=== PATIENT | female | born 1960 | race African-American/Black ===

== ENCOUNTER 2024-06-13 13:36 | Emergency (ER) | payer OTHER, SELFPAY ==
[2024-06-13] VITALS (7 sets, daily range): BP systolic 141–164; BP diastolic 77–102; PULSE 70–97; TEMP 36.9; O2SAT 98–100; BMI 23.6
--- NOTE | 2024-06-13 13:44 | CT_ITS ---
[address] [address] Patient Name: ARSENIO PEREZ MRN: [id number] date: 1960 Sex: F Assigned Patient Location: ER Current Patient Location: Accession/Order Number: [id number] Exam Date: 06/13/2024 15:00 Report Date: 06/13/2024 15:51 At the request of: IGNACIO ALFRED Procedure: CT abdomen pelvis w con EXAMINATION: CT abdomen pelvis w con INDICATION: Abdominal pain. COMPARISON: None. TECHNIQUE: Multiple contiguous axial CT images of the abdomen and pelvis were obtained after the administration of intravenous contrast. Sagittal and coronal reconstructions were performed. Dose reduction techniques were achieved by using: automated exposure control and/or adjustment of mA and /or kV according to patient size and/or use of iterative reconstruction technique. FINDINGS: LOWER CHEST: No acute abnormality. ABDOMEN AND PELVIS: LIVER: Normal. BILIARY SYSTEM: Normal gallbladder. No biliary ductal dilatation. PANCREAS: Normal. SPLEEN: Normal. ADRENAL GLANDS: Left adrenal 1.3 cm nodule. Normal right adrenal gland. URINARY SYSTEM: Hypoattenuating lesion in the upper pole the left kidney measuring 1.2 cm. Normal right kidney. No hydronephrosis or urolithiasis. Normal bladder. REPRODUCTIVE: Calcified fibroid in the left uterus. Unremarkable ovaries. GASTROINTESTINAL TRACT: Normal caliber bowel. No bowel wall thickening or inflammation. Colonic diverticulosis without diverticulitis. Normal appendix. VESSELS: Nonaneurysmal abdominal aorta with mild atherosclerotic calcifications. Patent abdominal vasculature. LYMPH NODES: No adenopathy. PERITONEUM: No ascites or pneumoperitoneum. MUSCULOSKELETAL: SOFT TISSUES: Small midline supraumbilical ventral hernia containing ascitic fluid. Small fat-containing umbilical hernia. BONES: No acute osseous abnormality or suspicious osseous lesion. JONES: (series:image) CT/CT abdomen pelvis w con IMPRESSION: 1. Small abdominal wall hernias. The supraumbilical ventral hernia contains fluid. Incarceration not excluded. No other evidence of process in the abdomen or pelvis. 2. Left adrenal nodule, likely an adenoma. 3. Indeterminate left renal 1.2 cm lesion. Recommend further characterizing with nonemergent renal protocol CT or MRI. MR would be preferable to also characterize the left adrenal nodule. 4. Colonic diverticulosis. Electronically authenticated by: HAILEE CHEEK Date: 06/13/2024 15:51
--- NOTE | 2024-06-13 13:54 | ED.GENADUL1 ---
HPI HPI - General Adult General Chief complaint: Abdominal Pain Stated complaint: ABDOMINAL SWELLING AND PAIN Time Seen by Provider: 06/13/24 13:38 Source: patient Mode of arrival: walk-in History of Present Illness HPI narrative: Patient presents to ED complaining of abdominal pain and distention. Patient is from [facility] and she states she is recovering from cocaine. Patient states she has had some abdominal pain and hernia for the past 3 weeks but its gotten much more tender and distended over the past couple of days. She reports that she is able to eat and drink but does have nausea. She is able to have normal bowel movements and urination. Patient denies any history of abdominal surgeries. She denies alcohol abuse. Patient is slightly tachycardic and tachypneic. No fevers. She denies any blood in the stool. She does have a distended abdomen with a central abdominal pain and there is a palpable lump. She is alert and oriented in no acute distress. Appears uncomfortable Related Data Home Medications ?Medication ?Instructions ?Recorded ?Confirmed amlodipine 5 mg tablet 5 mg PO DAILY 06/13/24 06/13/24 duloxetine 60 mg capsule,delayed 60 mg PO DAILY 06/13/24 06/13/24 release ibuprofen 800 mg tablet 800 mg PO BID PRN fever or pain 06/13/24 06/13/24 lamotrigine 100 mg tablet 100 mg PO QAM 06/13/24 06/13/24 lamotrigine 25 mg tablet 50 mg PO QAM 06/13/24 06/13/24 losartan 100 mg tablet 100 mg PO DAILY 06/13/24 06/13/24 melatonin 10 mg capsule 10 mg PO .QHS PRN sleep 06/13/24 06/13/24 quetiapine 400 mg tablet 400 mg PO QPM 06/13/24 06/13/24 Previous Rx's ?Medication ?Instructions ?Recorded docusate sodium 100 mg capsule 100 mg PO DAILY #14 caps 06/13/24 (Colace) Allergies Allergy/AdvReac Type Severity Reaction Status Date / Time No Known Drug Allergies Allergy Verified 06/13/24 13:44 Opioid HPI Opioid Management Most Recent Opioid Data: Last Pain Scale 7 06/13/24 16:03 06/13/24 Last MAR Pain Assessment 06/13/24 16:03 Review of Systems ROS Status of ROS 10 or more systems reviewed and unremarkable except as noted in history and below Exam Narrative Exam Narrative: Time Seen: [] Vital Signs: [Per nurse's notes.] General: [Alert] Skin: [Warm, dry, no rash.] Head: [Normocephalic, atraumatic.] Neck: [Supple, trachea midline.] Eye: [Pupils are equal, round and reactive to light, extraocular movements are intact, normal conjunctiva.] Ears, nose, mouth and throat: oral mucosa moist. Cardiovascular: [Regular rate and rhythm, no murmur.] Respiratory: [Lungs are clear to auscultation, respirations are non-labored, breath sounds are equal.] Chest wall: [No tenderness, no deformity.] Gastrointestinal: [Abdomen soft, distended. Ventral hernia felt in the central abdomen above the umbilicus with tenderness to palpation MSK: 5 out of 5 muscle strength x 4 extremities no calf pain or edema Lymphatics: [No lymphadenopathy.] Psychiatric: [Cooperative, appropriate mood & affect.] Neurological: [Alert and oriented to person, place, time, and situation, no focal neurological deficit observed.] Constitutional Vital Signs, click to edit/add: Last Vital Signs Temp 98.4 F 06/13/24 13:42 Pulse 70 06/13/24 16:34 Resp 22 H 06/13/24 13:42 BP 155/85 H 06/13/24 16:30 Pulse Ox 98 06/13/24 16:30 O2 Del Method Room Air 06/13/24 14:21 Course Vital Signs Vital signs: Vital Signs Temperature 98.4 F 06/13/24 13:42 Pulse Rate 97 H 06/13/24 13:42 Respiratory Rate 22 H 06/13/24 13:42 Blood Pressure 162/102 H 06/13/24 13:42 Pulse Oximetry 100 06/13/24 13:42 Oxygen Delivery Method Room Air 06/13/24 13:42 Temperature 98.4 F 06/13/24 13:42 Pulse Rate 70 06/13/24 16:34 Respiratory Rate 22 H 06/13/24 13:42 Blood Pressure 155/85 H 06/13/24 16:30 Pulse Oximetry 98 06/13/24 16:30 Oxygen Delivery Method Room Air 06/13/24 14:21 Medical Decision Making MDM Narrative Medical decision making narrative: Patient's labs are negative for acute findings. Vital signs stable. Lactic acid is normal and there is no white blood cell count or fever. Patient has not been vomiting. CT scan shows abdominal wall hernias and a ventral hernia containing fluid but the CT scan does not say that includes any bowel. Incarcerated hernia not fully excluded. Patient is feeling better after some pain medication and nausea medication. I called and spoke to surgeon at [facility] they stated with a normal lactate normal vitals no vomiting no bowel obstruction and the fact that the hernia contains fluid and not bowel then this could be managed on an outpatient basis most likely. He states to have the patient return immediately if she is having severe pain or vomiting or unable to keep anything down. I reviewed all of the findings and this information with the patient and she is going back to [facility] where she can also be monitored. I explained to her if she has any acute changes please return immediately to the nearest emergency room. She said she wants to get it fixed but would prefer to get it fixed down in [place] where she is from. I told her she needs to find a general surgeon to follow-up with. If she cannot get back down to [place] then she needs to go to the [place] area to have this evaluated by general surgery. She states that she will work on finding follow-up. She will return to the emergency room if any worsening symptoms. She also has constipation and states it has been hard for her to have a bowel movement although on arrival she said she has been having bowel movements without any pain. She states has been a little tougher to have the bowel movement. CT scan does show that she has a lot of stool in her colon She states that she needs a stool softener so I wrote a prescription for her for that. Patient is stable for discharge home and given strict instructions to return if any worsening symptoms or changes. Differential Diagnosis Differential Diagnosis: Ventral hernia, abdominal wall hernia, small bowel obstruction, abdominal p Lab Data Lab results reviewed: Yes I reviewed the patient's lab results Labs: Lab Results 06/13/24 06/13/24 Range/Units 13:48 13:49 WBC 6.0 (4.0-11.0) 10^3/uL RBC 4.56 (4.20-5.40) 10^6/uL Hgb 13.8 (12.0-16.0) g/dL Hct 41.2 (36.0-48.0) % MCV 90.4 (81.0-99.0) fL MCH 30.3 (26.7-34.0) pg MCHC 33.5 (29.9-35.2) g/dL RDW 15.2 H (11.0-15.0) % Plt Count 330 (150-450) 10^3/uL MPV 8.8 L (9.5-13.5) fL Neut % (Auto) 52.2 (43.0-75.0) % Lymph % (Auto) 37.5 (20.5-60.0) % [place] % (Auto) 7.5 (1.7-12.0) % Eos % (Auto) 1.7 (0.9-7.0) % Baso % (Auto) 0.8 (0.2-2.0) % Neut # (Auto) 3.1 (1.4-6.5) 10^3/uL Lymph # (Auto) 2.3 (1.2-3.8) 10^3/uL [place] # (Auto) 0.5 (0.3-0.8) 10^3/uL Eos # (Auto) 0.1 (0.0-0.7) 10^3/uL Baso # (Auto) 0.1 (0.0-0.1) 10^3/uL Abs Immat Gran (auto) 0.02 (0.00-0.03) 10^3/uL Imm/Tot Granulo (auto) 0.3 (0.0-0.5) % PT 10.3 (9.0-11.6) sec INR 0.97 Sodium 141 (136-145) mmol/L Potassium 4.2 (3.5-5.1) mmol/L Chloride 107 (98-107) mmol/L Carbon Dioxide 25.8 (21.0-32.0) mmol/L Anion Gap 12.4 BUN 16.0 (7.0-18.0) mg/dL Creatinine 0.93 (0.55-1.02) mg/dL Est GFR ( Amer) >60 (>=60 mL/min/1.73m^2) Est GFR (Non-Af Amer) >60 (>=60 mL/min/1.73m^2) BUN/Creatinine Ratio 17.2 Glucose 110 H (74-106) mg/dL Lactate 1.5 (0.4-2.0) mmol/L Calcium 8.7 (8.5-10.1) mg/dL Total Bilirubin 0.2 (0.2-1.0) mg/dL AST 9 L (15-37) U/L ALT 19 (14-59) U/L Alkaline Phosphatase 78 (46-116) U/L Total Protein 6.8 (6.4-8.2) g/dL Albumin 3.2 L (3.4-5.0) g/dL Globulin 3.6 g/dL Albumin/Globulin Ratio 0.9 Urine Color Yellow (YELLOW) Urine Clarity Clear (CLEAR) Urine pH 6.0 (5.0-9.0) Ur Specific [place] 1.025 (1.005-1.025) Urine Protein Negative (NEG/TRACE) mg/dL Urine Glucose (UA) Negative (NEGATIVE) mg/dL Urine Ketones Trace A (NEGATIVE) mg/dL Urine Occult Blood Negative (NEGATIVE) Urine Nitrite Negative (NEGATIVE) Urine Bilirubin Negative (NEGATIVE) Urine Urobilinogen 2.0 A (0.2-1.0) EU/dL Ur Leukocyte Esterase Negative (NEGATIVE) Imaging Data CT scan - abdomen: Radiologist's impression: ITS Impressions Abdomen/Pelvis CT 06/13/24 13:44 IMPRESSION: 1. Small abdominal wall hernias. The supraumbilical ventral hernia contains fluid. Incarceration not excluded. No other evidence of process in the abdomen or pelvis. 2. Left adrenal nodule, likely an adenoma. 3. Indeterminate left renal 1.2 cm lesion. Recommend further characterizing with nonemergent renal protocol CT or MRI. MR would be preferable to also characterize the left adrenal nodule. 4. Colonic diverticulosis. Electronically authenticated by: HAILEE CHEEK Date: 06/13/2024 15:51 Discharge Plan Discharge Chief Complaint: Abdominal Pain Clinical Impression: Abdominal pain, Hernia, ventral Patient Disposition: Home, Self-Care Time of Disposition Decision: 16:54 Condition: Good Mode of Transportation: Private Vehicle Prescriptions / Home Meds: New docusate sodium [Colace] 100 mg capsule 100 mg PO DAILY Qty: 14 0RF No Action amlodipine 5 mg tablet 5 mg PO DAILY duloxetine 60 mg capsule,delayed release(DR/EC) 60 mg PO DAILY ibuprofen 800 mg tablet 800 mg PO BID PRN (Reason: fever or pain) lamotrigine 100 mg tablet 100 mg PO QAM lamotrigine 25 mg tablet 50 mg PO QAM losartan 100 mg tablet 100 mg PO DAILY melatonin 10 mg capsule 10 mg PO .QHS PRN (Reason: sleep) quetiapine 400 mg tablet 400 mg PO QPM Print Language: Swedish Instructions: Abdominal Pain (ED), Ventral Hernia (ED) Referrals: Physician,Non-Staff, MD [Primary Care Provider] - 1 week
[2024-06-13 14:05] LABS: Basophils Absolute Auto 0.1 10^3/uL (0.0-0.1); Basophils Percent Auto 0.8 % (0.2-2.0); Eosinophils Absolute Auto 0.1 10^3/uL (0.0-0.7); Eosinophils Percent Auto 1.7 % (0.9-7.0); Hematocrit 41.2 % (36.0-48.0); Hemoglobin 13.8 g/dL (12.0-16.0); Immature Granulocytes Abs Auto 0.02 10^3/uL (0.00-0.03); Immature Granulocytes Pct Auto 0.3 % (0.0-0.5); Lymphocytes Absolute Auto 2.3 10^3/uL (1.2-3.8); Lymphocytes Percent Auto 37.5 % (20.5-60.0); Mean Corpuscular HGB Conc 33.5 g/dL (29.9-35.2); Mean Corpuscular Hemoglobin 30.3 pg (26.7-34.0); Mean Corpuscular Volume 90.4 fL (81.0-99.0); Mean Platelet Volume 8.8 fL (9.5-13.5); Monocytes Absolute Auto 0.5 10^3/uL (0.3-0.8); Monocytes Percent Auto 7.5 % (1.7-12.0); Neutrophils Absolute Auto 3.1 10^3/uL (1.4-6.5); Neutrophils Percent Auto 52.2 % (43.0-75.0); Platelet Count 330 10^3/uL (150-450); Red Blood Count 4.56 10^6/uL (4.20-5.40); Red Cell Distribution Width 15.2 % (11.0-15.0)
[2024-06-13 14:07] LABS: Bilirubin Urine NEGATIVE (NEGATIVE); Blood Urine NEGATIVE (NEGATIVE); Clarity Urine CLEAR (CLEAR); Color Urine YELLOW (YELLOW); Glucose Urine UA NEGATIVE (NEGATIVE); Ketones Urine TRACE mg/dL (NEGATIVE); Leukocyte Esterase Urine NEGATIVE (NEGATIVE); Nitrite Urine NEGATIVE (NEGATIVE); Protein Urine NEGATIVE (NEG/TRACE); Specific Gravity Urine 1.025 (1.005-1.025)
[2024-06-13] MEDS: 0.9 % SODIUM CHLORIDE 500 ML IV (14:08)
[2024-06-13] MEDS: KETOROLAC TROMETHAMINE 30 MG/ML VIAL 15 MG IVP ×2 (14:08→16:03)
[2024-06-13 14:09] LABS: Urine Microscopic Indicated NO
[2024-06-13] MEDS: ONDANSETRON PF 4 MG/2 ML VIAL IV (14:09)
[2024-06-13 14:42] LABS: Alanine Aminotransferase 19 U/L (14-59); Albumin Globulin Ratio 0.9; Albumin Level 3.2 g/dL (3.4-5.0); Alkaline Phosphatase 78 U/L (46-116); Anion Gap 12.4; Aspartate Amino Transferase 9 U/L (15-37); BUN Creatinine Ratio 17.2; Bilirubin Total 0.2 mg/dL (0.2-1.0); Calcium 8.7 mg/dL (8.5-10.1); Carbon Dioxide 25.8 mmol/L (21.0-32.0); Chloride 107 mmol/L (98-107); Estimated GFR (African America >60 (>=60 mL/min/1.73m^2); Estimated GFR (Non-African Ame >60 (>=60 mL/min/1.73m^2); Globulin 3.6 g/dL; Glucose 110 mg/dL (74-106); Potassium 4.2 mmol/L (3.5-5.1); Sodium 141 mmol/L (136-145); Total Protein 6.8 g/dL (6.4-8.2)
[2024-06-13 14:43] LABS: Lactate/Lactic Acid 1.5 mmol/L (0.4-2.0)
[2024-06-13 14:47] LABS: INR 0.97; Prothrombin Time 10.3 sec (9.0-11.6)
== END 2024-06-13 17:11 | disposition home or self-care (01) ==
PROVIDERS: Emergency Provider Emergency Medicine
DX: K43.9 Ventral hernia without obstruction or gangrene (principal); R10.9 Unspecified abdominal pain; K57.30 Diverticulosis of large intestine without perforation or abscess without bleeding
CPT/HCPCS: 36415; 74177; 80053; 81003; 83605; 85025; 85610; 96374; 96375; 96376; 99284; J1885; J2405; Q9967

== ENCOUNTER 2024-06-16 10:50 | Emergency (ER) | payer OTHER, SELFPAY ==
[2024-06-16 10:54] VITALS: BP 165/106; PULSE 80; TEMP 36.5; O2SAT 97; BMI 23.6
--- NOTE | 2024-06-16 11:08 | ED_ITS ---
HPI - Abdominal Pain General Chief Complaint: Abdominal Pain Stated Complaint: ABDOMINAL PAIN Time Seen by Provider: 06/16/24 10:56 Mode of arrival: walk-in History of Present Illness HPI narrative: The patient is a 63-year-old female is [facility], for concern of abdominal pain and hernia, patient was evaluated for similar reason on the of this month when she was referred to the general surgeon as outpatient, she mentioned that for the last few days she noted that the pain is still there she gave the pain 8 out of 10, the patient mentioned that there is no vomiting but some nausea and she has been having norm al bowel movement after she had a constipation last time she was here No specific tenderness but the hernia is reducible and yesterday she mentioned that she felt like the hernia is in her lap This is not the case today at the patient have pain still in the mid abdomen but no bulging Patient mentioned that sometimes walking makes the bulging get worse Related Data Home Medications ?Medication ?Instructions ?Recorded ?Confirmed amlodipine 5 mg tablet 5 mg PO DAILY 06/13/24 06/13/24 duloxetine 60 mg capsule,delayed 60 mg PO DAILY 06/13/24 06/13/24 release ibuprofen 800 mg tablet 800 mg PO BID PRN fever or pain 06/13/24 06/13/24 lamotrigine 100 mg tablet 100 mg PO QAM 06/13/24 06/13/24 lamotrigine 25 mg tablet 50 mg PO QAM 06/13/24 06/13/24 losartan 100 mg tablet 100 mg PO DAILY 06/13/24 06/13/24 melatonin 10 mg capsule 10 mg PO .QHS PRN sleep 06/13/24 06/13/24 quetiapine 400 mg tablet 400 mg PO QPM 06/13/24 06/13/24 Previous Rx's ?Medication ?Instructions ?Recorded docusate sodium 100 mg capsule 100 mg PO DAILY #14 caps 06/13/24 (Colace) ondansetron 4 mg disintegrating 4 mg PO Q8H PRN nausea and 06/16/24 tablet vomiting 48 hours #6 tabs Allergies Allergy/AdvReac Type Severity Reaction Status Date / Time No Known Drug Allergies Allergy Verified 06/13/24 13:44 Review of Systems ROS Status of ROS 10 or more systems reviewed and unremark able except as noted in history and below PFSH PFSH Social History Little interest or pleasure in doing things: not at all Feeling down, depressed, or hopeless: not at all Exam Narrative Exam Narrative: Nurses notes and vital signs reviewed and patient is not hypoxic. General: Well-appearing and in no apparent distress. Skin: Warm, dry, no pallor noted. No rash. Head: Normocephalic, atraumatic. Neck: Supple, non-tender. Eye: Pupils are equal, round and EOMI. No scleral icterus. Ears, Nose, Mouth, and Throat: TM are clear, no nasal mucosal hypertrophy. Oral mucosa is moist, no posterior oropharynx erythema, uvula is mid-line Cardiovascular: Regular Rate and Rhythm without murmur, gallop or rub. Respiratory: No accessory muscle use or respiratory distress. Lungs are clear to auscultation, no wheezing, rales or rhonchi Chest Wall: no tenderness Back: No midline thoracic or lumbar vertebral tenderness. No CVA tenderness Musculoskeletal: normal ROM, no calf or popliteal tenderness, no lower extremity edema/swelling GI: Abdomen is soft, distended but there is no specific hernia that could be observed, the patient have a soft abdomen with palpation there is no tenderness induced, and at the periumbilical area there is no hernia observed at the moment but the patient have generalized abdominal distention Neurological: A&O x4. No cranial nerve dysfunction observed. No truncal ataxia. Moves all extremities. Sensation intact. Psychiatric: Cooperative and interactive. Normal mood and affect. Constitutional Vital Signs, click to edit/add: Last Vital Signs Temp 97.7 F 06/16/24 10:54 Pulse 80 06/16/24 10:54 Resp 18 06/16/24 10:54 BP 165/106 H 06/16/24 10:54 Pulse Ox 97 06/16/24 10:54 O2 Del Method Room Air 06/16/24 10:54 Course Vital Signs Vital signs: Vital Signs Temperature 97.7 F 06/16/24 10:54 Pulse Rate 80 06/16/24 10:54 Respiratory Rate 18 06/16/24 10:54 Blood Pressure 165/106 H 06/16/24 10:54 Pulse Oximetry 97 06/16/24 10:54 Oxygen Delivery Method Room Air 06/16/24 10:54 Temperature 97.7 F 06/16/24 10:54 Pulse Rate 80 06/16/24 10:54 Respiratory Rate 18 06/16/24 10:54 Blood Pressure 165/106 H 06/16/24 10:54 Pulse Oximetry 97 06/16/24 10:54 Oxygen Delivery Method Room Air 06/16/24 10:54 MDM - Abdominal Pain MDM Narrative Medical decision making narrative: The patient CBC and chemistry showed no acute significant pathology and her lactic acid was not elevated it was 0.7 It was noted that the patient is not in any significant pain on exam and the patient was mostly concerned about the follow-up and she did not know who to follow-up with I put the referral for the patient with Dr. Christie she was also provided with some Zofran for the next couple days as supportive care with instruction to come back to the ER in case of any increasing pain The patient is to follow up with primary care physician in next 2-3 days or to return to the emergency department should any of the signs or symptoms worsen or new symptoms develop. The patient agrees with the following Diagnosis and Treatment plan and the patient will be discharged home. Lab Data Labs: Lab Results 06/16/24 Range/Units 11:15 WBC 4.3 (4.0-11.0) 10^3/uL RBC 4.59 (4.20-5.40) 10^6/uL Hgb 13.9 (12.0-16.0) g/dL Hct 41.3 (36.0-48.0) % MCV 90.0 (81.0-99.0) fL MCH 30.3 (26.7-34.0) pg MCHC 33.7 (29.9-35.2) g/dL RDW 15.2 H (11.0-15.0) % Plt Count 301 (150-450) 10^3/uL MPV 8.7 L (9.5-13.5) fL Neut % (Auto) 48.6 (43.0-75.0) % Lymph % (Auto) 39.9 (20.5-60.0) % [place] % (Auto) 8.3 (1.7-12.0) % Eos % (Auto) 2.3 (0.9-7.0) % Baso % (Auto) 0.7 (0.2-2.0) % Neut # (Auto) 2.1 (1.4-6.5) 10^3/uL Lymph # (Auto) 1.7 (1.2-3.8) 10^3/uL [place] # (Auto) 0.4 (0.3-0.8) 10^3/uL Eos # (Auto) 0.1 (0.0-0.7) 10^3/uL Baso # (Auto) 0.0 (0.0-0.1) 10^3/uL Abs Immat Gran (auto) 0.01 (0.00-0.03) 10^3/uL Imm/Tot Granulo (auto) 0.2 (0.0-0.5) % Sodium 139 (136-145) mmol/L Potassium 4.4 (3.5-5.1) mmol/L Chloride 104 (98-107) mmol/L Carbon Dioxide 26.8 (21.0-32.0) mmol/L Anion Gap 12.6 BUN 17.0 (7.0-18.0) mg/dL Creatinine 0.84 (0.55-1.02) mg/dL Est GFR ( Amer) >60 (>=60 mL/min/1.73m^2) Est GFR (Non-Af Amer) >60 (>=60 mL/min/1.73m^2) BUN/Creatinine Ratio 20.2 Glucose 100 (74-106) mg/dL Lactate 0.7 (0.4-2.0) mmol/L Calcium 8.9 (8.5-10.1) mg/dL Total Bilirubin 0.3 (0.2-1.0) mg/dL AST 16 (15-37) U/L ALT 17 (14-59) U/L Alkaline Phosphatase 77 (46-116) U/L Total Protein 7.1 (6.4-8.2) g/dL Albumin 3.5 (3.4-5.0) g/dL Globulin 3.6 g/dL Albumin/Globulin Ratio 1.0 Discharge Plan Discharge Chief Complaint: Abdominal Pain Clinical Impression: Abdominal hernia Patient Disposition: Home, Self-Care Time of Disposition Decision: 11:54 Condition: Good Mode of Transportation: Private Vehicle Prescriptions / Home Meds: New ondansetron 4 mg tablet,disintegrating 4 mg PO Q8H PRN (Reason: nausea and vomiting) 2 Days Qty: 6 0RF No Action amlodipine 5 mg tablet 5 mg PO DAILY duloxetine 60 mg capsule,delayed release(DR/EC) 60 mg PO DAILY ibuprofen 800 mg tablet 800 mg PO BID PRN (Reason: fever or pain) lamotrigine 100 mg tablet 100 mg PO QAM lamotrigine 25 mg tablet 50 mg PO QAM losartan 100 mg tablet 100 mg PO DAILY melatonin 10 mg capsule 10 mg PO .QHS PRN (Reason: sleep) quetiapine 400 mg tablet 400 mg PO QPM docusate sodium [Colace] 100 mg capsule 100 mg PO DAILY Qty: 14 0RF Print Language: Syriac Instructions: Ventral Hernia (ED) Referrals: Marcello Christie DO [Physician] - As soon as possible Physician,Non-Staff, MD [Primary Care Provider] - 1 week Discharge Date/Time: 06/16/24 12:32
[2024-06-16] MEDS: ONDANSETRON PF 4 MG/2 ML VIAL IV (11:17)
[2024-06-16] MEDS: FAMOTIDINE/PF 20 MG/2 ML VIAL IV (11:17)
[2024-06-16] MEDS: KETOROLAC TROMETHAMINE 30 MG/ML VIAL 15 MG IVP (11:17)
[2024-06-16 11:22] LABS: Basophils Percent Auto 0.7 % (0.2-2.0); Eosinophils Absolute Auto 0.1 10^3/uL (0.0-0.7); Eosinophils Percent Auto 2.3 % (0.9-7.0); Hematocrit 41.3 % (36.0-48.0); Hemoglobin 13.9 g/dL (12.0-16.0); Immature Granulocytes Abs Auto 0.01 10^3/uL (0.00-0.03); Immature Granulocytes Pct Auto 0.2 % (0.0-0.5); Lymphocytes Absolute Auto 1.7 10^3/uL (1.2-3.8); Lymphocytes Percent Auto 39.9 % (20.5-60.0); Mean Corpuscular HGB Conc 33.7 g/dL (29.9-35.2); Mean Corpuscular Hemoglobin 30.3 pg (26.7-34.0); Mean Platelet Volume 8.7 fL (9.5-13.5); Monocytes Absolute Auto 0.4 10^3/uL (0.3-0.8); Monocytes Percent Auto 8.3 % (1.7-12.0); Neutrophils Absolute Auto 2.1 10^3/uL (1.4-6.5); Neutrophils Percent Auto 48.6 % (43.0-75.0); Platelet Count 301 10^3/uL (150-450); Red Blood Count 4.59 10^6/uL (4.20-5.40); Red Cell Distribution Width 15.2 % (11.0-15.0); White Blood Count 4.3 10^3/uL (4.0-11.0)
[2024-06-16 11:41] LABS: Alanine Aminotransferase 17 U/L (14-59); Albumin Level 3.5 g/dL (3.4-5.0); Alkaline Phosphatase 77 U/L (46-116); Anion Gap 12.6; Aspartate Amino Transferase 16 U/L (15-37); BUN Creatinine Ratio 20.2; Bilirubin Total 0.3 mg/dL (0.2-1.0); Calcium 8.9 mg/dL (8.5-10.1); Carbon Dioxide 26.8 mmol/L (21.0-32.0); Chloride 104 mmol/L (98-107); Estimated GFR (African America >60 (>=60 mL/min/1.73m^2); Estimated GFR (Non-African Ame >60 (>=60 mL/min/1.73m^2); Globulin 3.6 g/dL; Glucose 100 mg/dL (74-106); Potassium 4.4 mmol/L (3.5-5.1); Sodium 139 mmol/L (136-145); Total Protein 7.1 g/dL (6.4-8.2)
[2024-06-16 11:44] LABS: Lactate/Lactic Acid 0.7 mmol/L (0.4-2.0)
== END 2024-06-16 12:32 | disposition home or self-care (01) ==
PROVIDERS: Emergency Provider Emergency Medicine
DX: K46.9 Unspecified abdominal hernia without obstruction or gangrene (principal)
CPT/HCPCS: 36415; 80053; 83605; 85025; 96374; 96375; 99284; J1885; J2405